=== PATIENT | male | born 1940 | race Caucasian/White ===

== ENCOUNTER 2022-06-22 11:14 | Inpatient (IN) | payer MEDICARE, OTHER ==
[~2022-06-22] VITALS: Ht 182.9 cm; Wt 69.4 kg
[2022-06-22] MEDS ORDERED: CALAZIME TP (11:38)
[2022-06-22] MEDS ORDERED: ASCO500C18 PO (11:38)
[2022-06-22] MEDS ORDERED: MULT-594 PO (11:38)
[2022-06-22] MEDS ORDERED: PETR368J TP (11:38)
[2022-06-22] MEDS ORDERED: FLUV50TA3 PO (11:38)
[2022-06-22] MEDS ORDERED: VITAMIN D3 PO (11:38)
[2022-06-22] MEDS ORDERED: ZOLP5TAB2 PO (11:38)
[2022-06-22] MEDS ORDERED: ACET-2154 PO (11:38)
[2022-06-22] MEDS ORDERED: ZINC220C6 PO (11:38)
[2022-06-22 12:11] LABS: *BILIRUBIN,URIN NEGATIVE (NEGATIVE); *BLOOD, URINE NEGATIVE (NEGATIVE); *CLARITY,URINE CLEAR (CLEAR); *COLOR,URINE YELLOW (YELLOW); *KETONES,URINE NEGATIVE (NEGATIVE); *UROBILINOGEN,URINE 0.2 E.U./dl (NORMAL); LEUKOCYTE ESTERASE ,URINE NEGATIVE (NEGATIVE); NITRITE, URINE NEGATIVE (NEGATIVE); PH,URINE 5.5 (5.0-8.0); UGLUCOSE NEGATIVE (NEGATIVE)
[2022-06-22 13:47] LABS: HEMATOCRIT 41.7 % (36.7-47.1); MEAN CORPUSCULAR HEMOGLOBIN 28.3 uug (23.8-33.4); MEAN CORPUSCULAR VOLUME 84.1 fL (73.0-96.2); PLATELET COUNT (AUTO) 286 K/uL (152-348)
[2022-06-22] MEDS ORDERED: HALOPERIDOL LACTATE 5 MG/1 ML VIAL ONE (15:21)
--- NOTE | 2022-06-22 15:22 | NUR ---
Clinical outreach and education social worker with crisis team aware of patient in ER. Stated she will evaluate patient after she is finished at [facility].
[2022-06-22] MEDS ORDERED: HALOPERIDOL LACTATE 5 MG/1 ML VIAL IM ONE (15:30)
[2022-06-22] MEDS ORDERED: HALOPERIDOL LACTATE 5 MG/1 ML VIAL IV ONE (15:30)
[2022-06-22 16:56] LABS: THYROID STIMULATING HORMONE 2.234 mIU/mL (0.358-3.740)
[2022-06-22 16:57] LABS: CHLORIDE 104 mmol/L (98-107); POTASSIUM 3.8 mmol/L (3.5-5.1)
[2022-06-22 16:58] LABS: CARBON DIOXIDE 28 mmol/L (21-32); GLUCOSE 82 mg/dL (74-106); UREA NITROGEN, BLOOD 26 mg/dL (7-18)
[2022-06-22 16:59] LABS: BILIRUBIN,TOTAL 0.3 mg/dL (0.2-1.0); CREATININE 0.9 mg/dL (0.6-1.3)
[2022-06-22 17:00] LABS: ALANINE AMINOTRANSFERASE 20 U/L (16-63); ALKALINE PHOSPHATASE 65 U/L (50-136); ASPARTATE AMINOTRANSFERASE 17 U/L (15-37); BILIRUBIN,DIRECT 0.1 mg/dL (0.0-0.2); TOTAL PROTEIN, SERUM 7.3 g/dL (6.4-8.2)
--- NOTE | 2022-06-22 17:23 | NUR ---
Patient medically clear per MD.
--- NOTE | 2022-06-22 20:00 | NUR ---
Patient calm and cooperative, ambulated to the bathroom independently.
--- NOTE | 2022-06-22 21:36 | NUR ---
Report given to Sai MARR.
--- NOTE | 2022-06-22 22:18 | NUR ---
Patient taken to MHU via wheelchair with personal belongings. Patient in stable condition no signs of distress. Sai MARR aware of patients arrival.
[2022-06-22] MEDS ORDERED: MAGNESIUM HYDROXIDE 30 ML LIQUID UDC PO PRN (22:30)
[2022-06-22] MEDS ORDERED: MAG HYDROX/AL HYDROX/SIMETH 30 ML LIQUID UDC PO PRN (22:30)
[2022-06-22 22:52] VITALS: BP 160/72
--- NOTE | 2022-06-23 00:03 | NUR ---
GPS: Admitted to unit earlier around 2214 an 82 yr.old male to be under the care of /JARED Boucher. Pt.is from [facility] were he was agitated/aggressive and striking out at staff and other residents. Pt.was medically cleared in the E.R. and was placed on a 72 hour hold for DTO/GD. Pt.is A/O x1-2. Poor insight to his present situation. Anxious,confused and forgetful but cooperative. Personal belongings and skin assessment was done and completed. Unit rules explained. Pt's rights handbook and advisement given. Safe environment provided. Bed alarm on for safety. Needs attended. Will continue to monitor.
--- NOTE | 2022-06-23 06:01 | NUR ---
GPS: Spoke to " Chrissy " nurse from [facility] regarding pt's covid vaccine status and per her it does not indicate on her records if she ever got his vaccine or not. Pt.is confused and forgetful and unable to say if he was vaccinated for Covid-19 or not.
[2022-06-23 07:30] VITALS: BP 159/57
[2022-06-23] MEDS: MULTIVITAMINS,THERAPEUTIC TABLET PO SCH (09:00)
[2022-06-23] MEDS: ZINC SULFATE 220 MG CAPSULE PO SCH (09:00)
[2022-06-23] MEDS: NICOTINE 7 MG/24HR PATCH TD SCH (09:00)
[2022-06-23] MEDS: ASCORBIC ACID 500 MG TABLET PO SCH (09:02)
[2022-06-23] MEDS ORDERED: CHOL100062 PO (09:06)
--- NOTE | 2022-06-23 12:23 | NUR ---
SANDY Initial Discharge Note: Pt currently resides at [facility] located at [address] [place] [address] ([phone]). SANDY will contact admissions at [facility] to discuss pt's return upon discharge. SANDY spoke with pt's niece, Susan ([phone]) who stated she will be involved in pt's care via telephone. Susan stated pt does not have a DPOA and she will be the only person to notify. SANDY will continue to work with pt, Susan and to ensure a safe and proper discharge plan.
--- NOTE | 2022-06-23 12:23 | NUR ---
SANDY Family Contact: SANDY spoke with pt's niece, Susan ([phone]) who stated she will be involved in pt's care via telephone. Susan stated pt does not have a DPOA and she will be the only person to notify. Susan is agreeable for pt to return to [facility] and she is aware discharge plan is subject to change if [facility] cannot accept pt back. SANDY will continue to inform and Susan is agreeable.
[2022-06-23] MEDS: ARIPIPRAZOLE 2 MG TABLET PO SCH (12:36)
[2022-06-23 16:00] VITALS: BP 124/85
--- NOTE | 2022-06-23 16:03 | NUR ---
Received pt in room awake calm cooperative,anxious at times.Pt is depressed and stated "I am going to because I am tired".Pt is continent and needs minimal assistance with ADLs. Pt likes to pace on the hallway and he informs staff he is Just exercising. Continue to monitor for safety, Continue with treatment Plan. Addendum: 06/23/22 at 1746 by MIREILLE LEES LVN Please disregard this note
--- NOTE | 2022-06-23 17:52 | NUR ---
Received Pt in Room awake ,Pt is A/O X1. Pt is depressed, Wiredrawn, confused, Disorganized and fixated of his food. Pt is constantly asking "where is My Food?"Pt needs Promoting and redirected to where his food is on his bed side table. Pt wonders around trying to open locked doors.Pt stays in bed most of the day and does not participates in group activities and does not interact with staff or peers.Continue to monitor for safety, Continue with treatment plan.
[2022-06-23] MEDS: MIRTAZAPINE 15 MG TABLET PO SCH (20:12)
[2022-06-23 20:59] VITALS: BP 113/68
[2022-06-24] MEDS: ACETAMINOPHEN 325 MG TABLET PO PRN (04:07)
--- NOTE | 2022-06-24 06:10 | NUR ---
GPS: Pt.now awake,anxious,confused and forgetful. Frequently asks for food. Re-directed frequently. Irritable when told that breakfast is not until 0800. Safe environment provided. Insight and judgment remains impaired. Needs attended. Will continue to monitor.
[2022-06-24] MEDS: CLONAZEPAM 0.5 MG TABLET PO PRN (06:19)
[2022-06-24 07:30] VITALS: BP 134/54
[2022-06-24] MEDS: NICOTINE 7 MG/24HR PATCH TD SCH (09:00)
[2022-06-24] MEDS: ARIPIPRAZOLE 2 MG TABLET PO SCH (10:32)
[2022-06-24] MEDS: ASCORBIC ACID 500 MG TABLET PO SCH (10:32)
[2022-06-24] MEDS: ZINC SULFATE 220 MG CAPSULE PO SCH (10:34)
[2022-06-24] MEDS: MULTIVITAMINS,THERAPEUTIC TABLET PO SCH (10:34)
[2022-06-24 16:00] VITALS: BP 116/56
--- NOTE | 2022-06-24 19:13 | NUR ---
pt spends most of the time in the room, does not want to attend groups or interact with peers and staff. Pt is compliant with medications.
[2022-06-24 20:11] VITALS: BP 108/50
[2022-06-24] MEDS: ATORVASTATIN 10 MG TABLET PO SCH (21:01)
[2022-06-24] MEDS: MIRTAZAPINE 15 MG TABLET PO SCH (21:01)
--- NOTE | 2022-06-24 21:04 | NUR ---
GPS: Remains confused,forgetful and gets anxious easily. Re-assured prn. Poor insight to present situation. Med.compliant. Denies SI. No aggressive behavior noted. Safe environment provided. Will continue to monitor.
[2022-06-25] MEDS: TEMAZEPAM 7.5 MG CAPSULE PO PRN (01:17)
[2022-06-25 07:42] VITALS: BP 129/61
[2022-06-25] MEDS: ZINC SULFATE 220 MG CAPSULE PO SCH (08:27)
[2022-06-25] MEDS: ASCORBIC ACID 500 MG TABLET PO SCH (08:27)
[2022-06-25] MEDS: ARIPIPRAZOLE 2 MG TABLET PO SCH (08:27)
[2022-06-25] MEDS: MULTIVITAMINS,THERAPEUTIC TABLET PO SCH (08:27)
[2022-06-25] MEDS: NICOTINE 7 MG/24HR PATCH TD SCH (08:33)
--- NOTE | 2022-06-25 14:58 | NUR ---
GPS: Nursing Notes: Thought Disorder: Patient is awake and responding to his name, impaired judgment, poor insight, disorganized, unkempt appearance, poor grooming, disoriented, gets easily irritable when redirected, unable to formulate a viable plan for self care, refusing to participate in therapeutic groups, isolative and withdrawn in his room, continue to monitor for safety, continue with treatment plan.
[2022-06-25 16:38] VITALS: BP 122/71
[2022-06-25 20:00] VITALS: BP 124/70
[2022-06-25] MEDS: MIRTAZAPINE 15 MG TABLET PO SCH (21:03)
[2022-06-25] MEDS: ATORVASTATIN 10 MG TABLET PO SCH (21:03)
[2022-06-25] MEDS: CLONAZEPAM 0.5 MG TABLET PO PRN (23:37)
[2022-06-26] MEDS: TEMAZEPAM 7.5 MG CAPSULE PO PRN (02:06)
--- NOTE | 2022-06-26 04:44 | NUR ---
Patient slept 1.00 . Up all night , confused, constantly asking for food , then not eating it. Forgetful and disoriented. Constant reorientation needed and assistance with all ADLs. Incontinent of urine at times. Unkept environment with trash all over. The medication for sleep provided, was noneffective. Safety Stratiges are in place. Continuing to monitor patient for compliance and behavior escalation. No acute distress noted at this time.
[2022-06-26 07:58] VITALS: BP 146/59
[2022-06-26] MEDS: ENSURE ENLIVE (VAN) 240 ML LIQUID PO SCH (08:42)
[2022-06-26] MEDS: ASCORBIC ACID 500 MG TABLET PO SCH (08:42)
[2022-06-26] MEDS: ZINC SULFATE 220 MG CAPSULE PO SCH (08:42)
[2022-06-26] MEDS: MULTIVITAMINS,THERAPEUTIC TABLET PO SCH (08:42)
[2022-06-26] MEDS: NICOTINE 7 MG/24HR PATCH TD SCH (08:43)
--- NOTE | 2022-06-26 14:11 | NUR ---
GPS: Nursing Notes: Thought Disorder: Patient is awake and responding to his name, poor anger management, disoriented, impaired judgment, poor insight, resistant with nursing care, gets easily irritable when redirected, refusing to participate in therapeutic groups, unable to formulate a viable plan for self care, continue to monitor for safety, continue with treatment plan.
[2022-06-26 16:39] VITALS: BP 133/59
[2022-06-26 20:05] VITALS: BP 146/66
[2022-06-26] MEDS ORDERED: ARIPIPRAZOLE 2 MG TABLET PO SCH ×2 (21:00)
[2022-06-26] MEDS ORDERED: ARIPIPRAZOLE 5 MG TABLET PO SCH (21:00)
[2022-06-26] MEDS: MIRTAZAPINE 15 MG TABLET PO SCH (21:36)
[2022-06-26] MEDS: ATORVASTATIN 10 MG TABLET PO SCH (21:36)
[2022-06-26] MEDS: CLONAZEPAM 0.5 MG TABLET PO PRN (21:37)
[2022-06-27] MEDS: TEMAZEPAM 7.5 MG CAPSULE PO PRN ×2 (00:21→23:25)
[2022-06-27] MEDS: ACETAMINOPHEN 325 MG TABLET PO PRN (00:22)
--- NOTE | 2022-06-27 03:33 | NUR ---
Patient is up and down. Wakes up suddenly ,forgetful and always demanding food. At times, the patient gets argumentative with the staff. Poor hygiene noted and frequent trips to the bathroom during the night. The patient asked this marketing underwriter for " A double Whiskey and a cheeseburger ". Reorientation and redirection provided as needed. Safety Stratiges are in place. The patient is medication compliant and is noted to be sleeping more than the previous night.
[2022-06-27 07:48] VITALS: BP 147/56
[2022-06-27] MEDS: ZINC SULFATE 220 MG CAPSULE PO SCH (08:37)
[2022-06-27] MEDS: ENSURE ENLIVE (VAN) 240 ML LIQUID PO SCH (08:38)
[2022-06-27] MEDS: MULTIVITAMINS,THERAPEUTIC TABLET PO SCH (08:38)
[2022-06-27] MEDS: ASCORBIC ACID 500 MG TABLET PO SCH (08:38)
[2022-06-27] MEDS: NICOTINE 7 MG/24HR PATCH TD SCH (08:38)
--- NOTE | 2022-06-27 09:26 | NUR ---
SANDY Discharge Update: SANDY [facility] with [facility] from [facility] located at [address] [place] [address] ([phone]) who stated pt is welcome back upon discharge when stable.
--- NOTE | 2022-06-27 10:56 | NUR ---
SANDY family Contact: SW spoke with pt's niece, Susan ([phone]) and discussed [facility] plan [facility] located at [address] [place] [address] ([phone]) upon discharge. Susan is agreeable with the discharge plan.
--- NOTE | 2022-06-27 13:30 | NUR ---
GPS: Nursing Notes: Thought Disorder: Patient is awake and responding to his name, impaired judgment, poor insight, resistant with nursing care, poor grooming, unkempt appearance, refusing to shower, gets easily irritable when redirected, A/Ox2, disorganized, poor anger management, labile, unpredictable behavior, unable to formulate a viable plan for self care, episodes of clenching his fists toward staff when his demands are not met immediately, continue to monitor for safety, continue with treatment plan.
[2022-06-27 16:30] VITALS: BP 139/65
[2022-06-27 20:19] VITALS: BP 119/50
[2022-06-27] MEDS: ARIPIPRAZOLE 5 MG TABLET PO SCH (20:28)
[2022-06-27] MEDS: ATORVASTATIN 10 MG TABLET PO SCH (20:29)
[2022-06-27] MEDS: MIRTAZAPINE 15 MG TABLET PO SCH (20:29)
[2022-06-28 07:30] VITALS: BP_SYST 139; BP_SYST 146; BP_DIAS 64; BP_DIAS 85
[2022-06-28] MEDS: CLONAZEPAM 0.5 MG TABLET PO PRN ×2 (08:08→20:12)
[2022-06-28] MEDS: ASCORBIC ACID 500 MG TABLET PO SCH (08:18)
[2022-06-28] MEDS: ZINC SULFATE 220 MG CAPSULE PO SCH (08:18)
[2022-06-28] MEDS: MULTIVITAMINS,THERAPEUTIC TABLET PO SCH (08:18)
[2022-06-28] MEDS: NICOTINE 7 MG/24HR PATCH TD SCH (08:19)
[2022-06-28] MEDS: ENSURE ENLIVE (VAN) 240 ML LIQUID PO SCH (08:19)
[2022-06-28 11:18] LABS: HEMATOCRIT 38.1 % (36.7-47.1); MEAN CORPUSCULAR HEMOGLOBIN 27.5 uug (23.8-33.4); MEAN CORPUSCULAR VOLUME 84.9 fL (73.0-96.2); PLATELET COUNT (AUTO) 280 K/uL (152-348)
--- NOTE | 2022-06-28 12:23 | NUR ---
GPS: Nursing Notes: Destructive Behavior To Others: Patient is awake and responding to his name, poor anger management, resistant with nursing care, forgetful, A/Ox1, labile, unpredictable behavior, constantly asking for food, but he does not eat it, stating "That food is from yesterday..", angry affect, clenching his fists toward staff, stated "These are fists where is my food...", redirected and reoriented during shift, but continue to be forgetful, believes that we are not feeding him, unable to formulate a viable plan for self care, poor grooming, refusing to take a shower, continue to monitor for safety, continue with treatment plan.
[2022-06-28 16:00] VITALS: BP 146/54
[2022-06-28] MEDS: MIRTAZAPINE 15 MG TABLET PO SCH (20:11)
[2022-06-28] MEDS: ARIPIPRAZOLE 5 MG TABLET PO SCH (20:11)
[2022-06-28] MEDS: ATORVASTATIN 10 MG TABLET PO SCH (20:12)
[2022-06-28 20:27] VITALS: BP 106/50
[2022-06-29] MEDS: TEMAZEPAM 7.5 MG CAPSULE PO PRN ×2 (00:03→23:27)
--- NOTE | 2022-06-29 04:41 | NUR ---
GPS NOTES: Patient is up constantly and at the nursing station, asking for "sandwich". Needs setting limit as he was served sandwiches as per his demand. Patient is noted to hoarding food on his bedside table. At some point patient is stating "this is my building, get out of my building". Speech is garbled w/c is a challenge to understand patients statements. Patient is labile, and anxious this shift. Ativan given and temazepam. Patient intermittently sleeping, and continues to ask food at the station. He is somewhat re-directable. Frequent monitoring observed. All safety measures in placed.
[2022-06-29 06:55] LABS: HEMATOCRIT 37.6 % (36.7-47.1); MEAN CORPUSCULAR HEMOGLOBIN 27.8 uug (23.8-33.4); MEAN CORPUSCULAR VOLUME 84.6 fL (73.0-96.2); PLATELET COUNT (AUTO) 269 K/uL (152-348)
[2022-06-29 07:25] LABS: CREATININE 0.9 mg/dL (0.6-1.3); MAGNESIUM 1.8 mg/dL (1.8-2.4); PHOSPHOROUS 3.2 mg/dL (2.5-4.9); POTASSIUM 4.1 mmol/L (3.5-5.1)
[2022-06-29 07:30] VITALS: BP 130/60
[2022-06-29] MEDS: ZINC SULFATE 220 MG CAPSULE PO SCH (08:25)
[2022-06-29] MEDS: MULTIVITAMINS,THERAPEUTIC TABLET PO SCH (08:25)
[2022-06-29] MEDS: NICOTINE 7 MG/24HR PATCH TD SCH (08:25)
[2022-06-29] MEDS: ASCORBIC ACID 500 MG TABLET PO SCH (08:25)
[2022-06-29] MEDS: ENSURE ENLIVE (VAN) 240 ML LIQUID PO SCH (08:35)
--- NOTE | 2022-06-29 15:58 | NUR ---
Received pt in hallway asking for food.Give pt some crackers and walk him to his room.Pt is ambulatory A/O X2 Pt comes to the nursing station asking for food even when his tray is at his bed side table.Pt is confused, disorganized and gets easily agitated at times when he does not get his way.Pt needs set limits and to be redirected constantly. Continue to monitor for safety, continue with treatment plan.
[2022-06-29 16:00] VITALS: BP 112/30
[2022-06-29 20:18] VITALS: BP 150/76
[2022-06-29] MEDS: ARIPIPRAZOLE 5 MG TABLET PO SCH (20:28)
[2022-06-29] MEDS: MIRTAZAPINE 15 MG TABLET PO SCH (20:29)
[2022-06-29] MEDS: CLONAZEPAM 0.5 MG TABLET PO PRN (20:29)
[2022-06-29] MEDS: ATORVASTATIN 10 MG TABLET PO SCH (20:29)
--- NOTE | 2022-06-30 05:15 | NUR ---
GPS NOTES: Appetite is enhanced, constantly asking for something to eat but leave the food at bedside, half-eaten. Snacks provided as per his requests, but need setting limit with the behavior. He is forgetful so ask the same requests even when informed of the meal schedules. Needs constant reminding and re-directions. He is med-compliant. Ativan and temazepam given. Semi-effective. He is sleeping on and off, going to station asking for food. Safety monitoring kept in placed.
[2022-06-30 07:53] VITALS: BP 130/48
[2022-06-30] MEDS: ZINC SULFATE 220 MG CAPSULE PO SCH (08:30)
[2022-06-30] MEDS: ASCORBIC ACID 500 MG TABLET PO SCH (08:31)
[2022-06-30] MEDS: MULTIVITAMINS,THERAPEUTIC TABLET PO SCH (08:31)
[2022-06-30] MEDS: NICOTINE 7 MG/24HR PATCH TD SCH (08:32)
[2022-06-30] MEDS: ENSURE ENLIVE (VAN) 240 ML LIQUID PO SCH (08:32)
--- NOTE | 2022-06-30 12:25 | NUR ---
Nursing - Kept coming to the Nurses Staion , asking for food to eat, kept asking for a drink of water or juice. Compliant with routine meds. Needing redirections and prompting from timr to time. Forgetful , encouraged to attend his group tx. Gretta Pereyra DNP , patient slept on 3 hours last night and reviewed medications , also was informed patient constantly asking for foods, something to seat.
--- NOTE | 2022-06-30 14:30 | NUR ---
Patient had court hearing today, accounts receivable assistant gave 14 Day probable cause for GD only.
--- NOTE | 2022-06-30 14:40 | NUR ---
Firearms Report: Pilot Captain completed and submitted a [employer] firearms report for 5150 a danger to others and grave disability certifications. A copy of report has been placed in patient chart.
[2022-06-30] MEDS: CLONAZEPAM 0.5 MG TABLET PO PRN ×2 (14:55→20:30)
[2022-06-30 15:12] VITALS: BP 137/48
--- NOTE | 2022-06-30 17:33 | NUR ---
Nursing- Limit setting provided , forgetful staff wrote down in a piece of paper, how many times he came down to the Nurses station asking for food , and how many times staff gave him his request, patient does not remember . Constant redirections and reminders provided.
[2022-06-30 20:07] VITALS: BP 146/88
[2022-06-30] MEDS: ARIPIPRAZOLE 5 MG TABLET PO SCH (20:30)
[2022-06-30] MEDS: ATORVASTATIN 10 MG TABLET PO SCH (20:31)
[2022-06-30] MEDS: MIRTAZAPINE 15 MG TABLET PO SCH (20:31)
[2022-06-30] MEDS: TEMAZEPAM 7.5 MG CAPSULE PO PRN (23:55)
--- NOTE | 2022-07-01 01:49 | NUR ---
Patient is forgetful , confused and irritated . Demanding multiple times during the night to give him food. When this newswriter pointed out that there is a whole bedside table with food on it, the patients behavior escalated and he yelled " That is from yesterday" Then he sat on his bed and made a fist and shouted at this newswriter " Woman, do not tell me what to do , or else! " Quickly , this newswriter was able to distract the patient, and spent many times during the shift, reorienting him. Safety Stratiges are in place, and continual monitoring for angry outbursts and behavior escalation.
[2022-07-01] MEDS: CLONAZEPAM 0.5 MG TABLET PO PRN ×2 (04:36→20:52)
[2022-07-01 07:30] VITALS: BP 135/51
[2022-07-01] MEDS: MULTIVITAMINS,THERAPEUTIC TABLET PO SCH (08:41)
[2022-07-01] MEDS: ZINC SULFATE 220 MG CAPSULE PO SCH (08:41)
[2022-07-01] MEDS: NICOTINE 7 MG/24HR PATCH TD SCH (08:41)
[2022-07-01] MEDS: ASCORBIC ACID 500 MG TABLET PO SCH (08:41)
[2022-07-01] MEDS: ENSURE ENLIVE (VAN) 240 ML LIQUID PO SCH (08:42)
--- NOTE | 2022-07-01 11:51 | NUR ---
Nursing - Kept coming by the Nurses station, kept asking for something to eat, very forgetful, made a list and time patient came to the Nurses station asking for food. Patient claimed he does not remember .Couple of times patient asking where is his room.
[2022-07-01 16:00] VITALS: BP 122/59
[2022-07-01 19:52] VITALS: BP 126/54
[2022-07-01] MEDS: MIRTAZAPINE 15 MG TABLET PO SCH (20:51)
[2022-07-01] MEDS: ARIPIPRAZOLE 5 MG TABLET PO SCH (20:51)
[2022-07-01] MEDS: ATORVASTATIN 10 MG TABLET PO SCH (20:51)
[2022-07-01] MEDS ORDERED: ALBUTEROL SULFATE 2.5 MG/ 0.5 ML NEBU NEB SCH (21:30)
[2022-07-01] MEDS: IPRATROPIUM BROMIDE 0.5 MG/2.5 ML NEBU NEB PRN ×2 (22:16→22:19)
[2022-07-01] MEDS: ALBUTEROL SULFATE 2.5 MG/ 0.5 ML NEBU NEB PRN ×2 (22:16→22:19)
--- NOTE | 2022-07-02 06:49 | NUR ---
Received patient at the start of the shift, forgetful, and requesting food. This mortgage loan underwriter noticed that the patient had audible wheezing and appeared short of breath. The O2 saturation was 965. The [facility] [employer]GE [employer] contract officer was notified and orders received for respiratory treatment. The patient responded well to the treatment and slept 5.00 , this is an improvement from the previous nights.The patient did not continuously request food. Safety Stratiges are in place.
[2022-07-02 07:53] VITALS: BP 129/43
[2022-07-02] MEDS: MULTIVITAMINS,THERAPEUTIC TABLET PO SCH (08:34)
[2022-07-02] MEDS: NICOTINE 7 MG/24HR PATCH TD SCH (08:34)
[2022-07-02] MEDS: ZINC SULFATE 220 MG CAPSULE PO SCH (08:35)
[2022-07-02] MEDS: ASCORBIC ACID 500 MG TABLET PO SCH (08:36)
[2022-07-02] MEDS: ENSURE ENLIVE (VAN) 240 ML LIQUID PO SCH (08:38)
--- NOTE | 2022-07-02 11:06 | NUR ---
Nursing -Dr Murguia was in to see patient , was informed of the congestions and moist on and off coughing, drooling, orders received to swab pt. for covid.
[2022-07-02 16:22] VITALS: BP 124/52
[2022-07-02 20:00] VITALS: BP 140/58
[2022-07-02] MEDS: MIRTAZAPINE 15 MG TABLET PO SCH (21:00)
[2022-07-02] MEDS: ATORVASTATIN 10 MG TABLET PO SCH (21:00)
[2022-07-02] MEDS: ARIPIPRAZOLE 5 MG TABLET PO SCH (21:00)
[2022-07-02] MEDS: CLONAZEPAM 0.5 MG TABLET PO PRN (21:48)
[2022-07-03] MEDS: TEMAZEPAM 7.5 MG CAPSULE PO PRN (02:01)
[2022-07-03] MEDS: ACETAMINOPHEN 325 MG TABLET PO PRN (02:01)
--- NOTE | 2022-07-03 04:34 | NUR ---
Receive Pt in room pacing anxious asking for food. Pt is forgetful and labile. Pt still keeps coming to nurse station asking for food constantly. Pt takes a few bites of the snacks given and comes out of room asking for more even though he still has some on his bed side table. Pt needs to be constantly redirected. Reassurance provided. Continue to monitor for safety , continue with treatment plan.
[2022-07-03] MEDS: CLONAZEPAM 0.5 MG TABLET PO PRN ×2 (06:14→20:43)
[2022-07-03 08:18] VITALS: BP 125/58
[2022-07-03] MEDS: ASCORBIC ACID 500 MG TABLET PO SCH (08:30)
[2022-07-03] MEDS: MULTIVITAMINS,THERAPEUTIC TABLET PO SCH (08:30)
[2022-07-03] MEDS: NICOTINE 7 MG/24HR PATCH TD SCH (08:30)
[2022-07-03] MEDS: ZINC SULFATE 220 MG CAPSULE PO SCH (08:30)
[2022-07-03] MEDS: ENSURE ENLIVE (VAN) 240 ML LIQUID PO SCH (08:31)
--- NOTE | 2022-07-03 13:00 | NUR ---
Nursing- Stayed in bed most of his morning, had been quiet, and came out twice asking for some crackers. Compliant with routine am meds, remains with some drooling as noted, no coughing , Dr Murguia was in to see patient reviewed chest x-ray results. .
[2022-07-03 16:06] VITALS: BP 132/56
[2022-07-03 19:53] VITALS: BP 126/55
[2022-07-03] MEDS: ATORVASTATIN 10 MG TABLET PO SCH (20:43)
[2022-07-03] MEDS: ARIPIPRAZOLE 5 MG TABLET PO SCH (20:43)
[2022-07-03] MEDS: MIRTAZAPINE 15 MG TABLET PO SCH (20:43)
[2022-07-04] MEDS: TEMAZEPAM 7.5 MG CAPSULE PO PRN ×2 (02:53→21:15)
--- NOTE | 2022-07-04 04:36 | NUR ---
Patient was up a couple of time during the night. It has been much easier to redirect the patient this shift than the prior ones. The patient has been less argumentative and demanding overall but still disoriented and forgetful. Redirection and reorientation ongoing . Safety Stratiges remain in place at this time. No acute distress noted at this time.
[2022-07-04] MEDS: CLONAZEPAM 0.5 MG TABLET PO PRN (08:46)
[2022-07-04 08:51] VITALS: BP 137/61
[2022-07-04] MEDS: NICOTINE 7 MG/24HR PATCH TD SCH (09:00)
[2022-07-04] MEDS: ZINC SULFATE 220 MG CAPSULE PO SCH (09:06)
[2022-07-04] MEDS: ENSURE ENLIVE (VAN) 240 ML LIQUID PO SCH (09:06)
[2022-07-04] MEDS: MULTIVITAMINS,THERAPEUTIC TABLET PO SCH (09:06)
[2022-07-04] MEDS: ASCORBIC ACID 500 MG TABLET PO SCH (09:06)
--- NOTE | 2022-07-04 14:08 | NUR ---
GPS: Destructive Behavior To Others: Patient is awake and responding to his name, poor anger management, overly demanding, but when his demands are not me immediately, patient becomes irritable and verbal abusive toward staff, redirected and reoriented during shift, forgetful at times, episodes of clinching his fists toward staff, unable to formulate a viable plan for self care, refusing to shower, poor grooming, continue with treatment plan.
--- NOTE | 2022-07-04 14:56 | NUR ---
SANDY Family Contact: SW left a voicemail for pt's niece, Susan ([phone]) for pt's discharge plan to return to [facility] located at [address] [place] [address] ([phone]) on 07/05/22 via ambulance. Susan was previously agreeable with the discharge plan. SANDY spoke with admissions as well who are aware of pt's return. SANDY send discharge clinicals per request.
--- NOTE | 2022-07-04 16:27 | NUR ---
SANDY Discharge Update: SANDY spoke with [facility] from [facility] located at [address] [place] [address] ([phone]) who stated pt is welcome back tomorrow due to Dr. Torres stating pt is stable for discharge.
[2022-07-04 16:43] VITALS: BP 126/56
[2022-07-04 20:10] VITALS: BP 132/64
[2022-07-04] MEDS: ARIPIPRAZOLE 5 MG TABLET PO SCH (21:16)
[2022-07-04] MEDS: ATORVASTATIN 10 MG TABLET PO SCH (21:16)
[2022-07-04] MEDS: MIRTAZAPINE 15 MG TABLET PO SCH (21:16)
[2022-07-05] MEDS: CLONAZEPAM 0.5 MG TABLET PO PRN (01:14)
--- NOTE | 2022-07-05 07:31 | NUR ---
Patient has been very agitated throughout the night,; fixating on snacks.However, he is compliant with meds, and easy to redirect. He did slept for a couple hours after administered PRN fro anxiety. No changes in patient condition. Patient is now resting in his room.
[2022-07-05 08:13] VITALS: BP 112/52
[2022-07-05] MEDS: ASCORBIC ACID 500 MG TABLET PO SCH (08:51)
[2022-07-05] MEDS: MULTIVITAMINS,THERAPEUTIC TABLET PO SCH (08:51)
[2022-07-05] MEDS: ZINC SULFATE 220 MG CAPSULE PO SCH (08:51)
[2022-07-05] MEDS: NICOTINE 7 MG/24HR PATCH TD SCH (08:52)
[2022-07-05] MEDS: ENSURE ENLIVE (VAN) 240 ML LIQUID PO SCH (08:52)
--- NOTE | 2022-07-05 08:58 | NUR ---
SANDY Discharge Screener: SANDY completed a discharge screener with the pt.
--- NOTE | 2022-07-05 11:44 | NUR ---
SANDY Discharge Note: Pt [facility] be [facility] located at [address] [place] [address] ([phone]) via ambulance transportation at 2PM. SANDY spoke with Yoselin in admissions who states they are ready to accept the pt today in room 53A. Pt is aware and agreeable with discharge plan. SANDY spoke with pts Susan singletary ([phone]) who was previously agreeable with the discharge plan. SANDY left a voicemail for pts final discharge plan details to [facility]. Pt is alert and oriented x3, is unable to plan for self-care at this time. However, pt is willing to accept care at SNF. Pt denies any suicidal or homicidal ideation. Pt will follow-up at the facility with Psychiatrist, Dr. Valerio and Dentist/Owner, Dr. El. Pt presents with calm mood and congruent affect. PHARMACY: [facility] ([phone]) [address] [place] [address].
--- NOTE | 2022-07-05 14:25 | NUR ---
Received [facility] located at [address] [place] [address] ([phone]) via ambulance transportation at 2PM. Patient was agreeable with discharge plans but was not able to sign discharge documents, patient denies SI/HI/AH/VH, SOB, pain or any discomforts. All belongings were returned to patient. Patient left the unit at 14:30, emotional support provided, and falls precautions implemented.
== END 2022-07-05 14:30 | DRG 885 ==
LOC: ER 11:14 → GPS 22:02
PROVIDERS: ADMIT Psychiatry & Neurology Psychiatry; ATTEND Internal Medicine
DX: F33.3 Major depressive disorder, recurrent, severe with psychotic symptoms (principal); J44.9 Chronic obstructive pulmonary disease, unspecified; E78.5 Hyperlipidemia, unspecified; F17.210 Nicotine dependence, cigarettes, uncomplicated; F42.9 Obsessive-compulsive disorder, unspecified; I25.2 Old myocardial infarction; I51.7 Cardiomegaly; M19.90 Unspecified osteoarthritis, unspecified site; Z20.822 Contact with and (suspected) exposure to COVID-19; Z86.16 Personal history of COVID-19; L98.9 Disorder of the skin and subcutaneous tissue, unspecified; R41.9 Unspecified symptoms and signs involving cognitive functions and awareness; F10.21 Alcohol dependence, in remission
CPT/HCPCS: 36415; 71045; 82747; 83735; 84100; 84443; 85014; 85025; 94640; 94664; A4663; A9150; J1630; J3590